=== PATIENT | female | born 1950 | race Caucasian/White ===

== ENCOUNTER 2017-09-22 12:53 | Emergency (ER) | payer OTHER ==
[~2017-09-22] VITALS: Ht 162.6 cm; Wt 90.7 kg
[2017-09-22 12:58] VITALS: Ht 162.6 cm; Wt 90.7 kg
[2017-09-22 15:04] VITALS: BP 178/95
== END 2017-09-22 12:58 | disposition home or self-care (01) ==
LOC: ED 12:53
DX: M27.3 Alveolitis of jaws (principal); I10 Essential (primary) hypertension; E78.00 Pure hypercholesterolemia, unspecified; Z88.1 Allergy status to other antibiotic agents

== ENCOUNTER 2019-01-02 17:07 | Emergency (ER) | payer OTHER ==
[~2019-01-02] VITALS: Ht 165.1 cm; Wt 98.9 kg
[2019-01-02 17:17] VITALS: Ht 165.1 cm; Wt 98.9 kg
[2019-01-02 19:10] VITALS: BP 140/76
== END 2019-01-02 19:10 | disposition home or self-care (01) ==
LOC: ED 17:07
DX: S46.912A Strain of unspecified muscle, fascia and tendon at shoulder and upper arm level, left arm, initial encounter (principal); S29.012A Strain of muscle and tendon of back wall of thorax, initial encounter; I10 Essential (primary) hypertension; E78.00 Pure hypercholesterolemia, unspecified; W18.30XA Fall on same level, unspecified, initial encounter; Y93.89 Activity, other specified; Y92.89 Other specified places as the place of occurrence of the external cause; Y99.8 Other external cause status
CPT/HCPCS: 72072